=== PATIENT | male | born 1940 | race Caucasian/White ===

== ENCOUNTER → 2018-03-06 10:31 | Outpatient (CLI) | payer MEDICARE, SELFPAY ==
[2018-03-06 11:43] LABS: PSA,Total- Diagnostic 4.62 ng/mL (0.0-4.0)
== END ==
DX: N40.0 Benign prostatic hyperplasia without lower urinary tract symptoms (principal)
CPT/HCPCS: 36415; 84153

== ENCOUNTER → 2018-12-26 15:46 | Outpatient (CLI) | payer MEDICARE, SELFPAY ==
--- NOTE | 2018-12-26 16:45 | MRI_ITS ---
STUDY: MRA NECK WITH AND WITHOUT CONTRAST REASON FOR EXAM: Male, 78 years old. Dizziness after neck extension TECHNIQUE: 3-D fgin-ll-swlhix (TOF) imaging was performed in an 1.5 T MRI scanner. 14 IV Dotarem was administered for the contrast enhanced images. COMPARISON: None. FINDINGS: RIGHT CAROTID ARTERIES: Normal right common carotid artery (CCA). Normal right common carotid bulb. Normal origin of the right internal carotid (ICA) artery without a hemodynamically significant stenosis. Normal visualized cervical portion of the right internal carotid artery. Normal origin of the right external carotid artery (ECA). LEFT CAROTID ARTERIES: Normal left common carotid artery (CCA). Normal left common carotid bulb. Normal origin of the left internal carotid (ICA) artery without a hemodynamically significant stenosis. Normal visualized cervical portion of the left internal carotid artery. Normal origin of the left external carotid artery (ECA). VERTEBRAL ARTERIES: Left vertebral is normal in caliber throughout its course.. There is moderate diffuse narrowing of the distal right vertebral. MRI/MRA Neck WITH and W/O Contrast IMPRESSION: Atherosclerosis with most severe involvement of the right vertebral artery. No hemodynamically significant stenosis of the carotid arteries utilizing NASCET criteria Electronically Signed: Juliano Zhou MD at 16:57 EDT , Service support ,
[2018-12-27 07:21] LABS: CREATININE FINGERSTICK 0.95 mg/dL (0.70-1.30); EGFR FINGERSTICK > 60 mL/min (>60)
== END ==
DX: Z01.812 Encounter for preprocedural laboratory examination (principal); R42 Dizziness and giddiness
CPT/HCPCS: 70549; A9575

== ENCOUNTER → 2020-07-22 08:43 | Outpatient (CLI) | payer MEDICARE, SELFPAY ==
--- NOTE | 2020-07-22 08:49 | BD_ITS ---
STUDY: DUAL ENERGY X-RAY ABSORPTIOMETRY / DXA REASON FOR EXAM: Male, 80 years old. M810. Loss of height. TECHNIQUE: Bone Mineral Density (BMD) measurements of lumbar spine and bilateral hips were obtained. COMPARISON: None. FINDINGS: Lumbar Spine (L1-L4): g/cm2 (1.055) / T-score (-1.3) / Z-score (-0.6) Findings are suggestive of osteopenia with a low fracture risk. Increased thoracic kyphosis. Left Femur Total: g/cm2 (0.914) / T-score (-1.3) / Z-score (-0.2) Left Femoral Neck: g/cm2 (0.883) / T-score (-1.4) / Z-score (0.1) Right Femur Total: g/cm2 (0.951) / T-score (-1.0) / Z-score (0.0) Right Femoral Neck: g/cm2 (0.935) / T-score (-1.0) / Z-score (0.5) BD/Dexa Bone Density Study IMPRESSION: The patient is considered osteopenic as outlined below according to World [employer] Organization (WHO) criteria with a low fracture risk. Reference Information: The T-score is the number of standard deviations above or below the standard which is normal for young adults at their peak bone mineral density. The World Health Organization (WHO) interprets the T-scores as follows: Above -1 Normal bone density Between -1 and -2.5 Osteopenia Equal to / or below -2.5 Osteoporosis As a practical clinical guideline, osteopenia may be graded as follows: Mild -1 through -1.5 Moderate -1.6 through -2.0 Severe -2.1 through -2.4 The Z-score is the number of standard deviations above or below age-matched controls. A Z-score of less than -1.5 would be considered abnormal. References: 1. NIH Osteoporosis and Related Bone Diseases www osteo.org 2. International Society for Clinical Densitometry www iscd.org 3. National Osteoporosis Foundation www nof.org Electronically Signed: Amanuel Hanley MD at 15:38 EDT , Service support ,
== END ==
DX: M81.0 Age-related osteoporosis without current pathological fracture (principal)
CPT/HCPCS: 77080

== ENCOUNTER → 2021-02-24 12:34 | Outpatient (CLI) | payer MEDICARE, SELFPAY ==
--- NOTE | 2021-02-24 13:00 | MRI_ITS ---
EXAM: MR HEAD WITHOUT INTRAVENOUS CONTRAST CLINICAL INDICATION: Left-sided headache and weakness. TECHNIQUE: Multiplanar and multisequence MR images of the brain were obtained without intravenous contrast. This report was created using [employer] report generation technology. COMPARISON: None. FINDINGS: BRAIN AND EXTRA-AXIAL SPACES: No diffusion restriction throughout the brain parenchyma. No focal signal abnormalities of the brain parenchyma in all of the pulse sequences. No intra- or extra-axial hemorrhage. No evidence of acute infarct. No intracranial mass or mass effect. There is preservation of the crespo/white matter interface. Posterior fossa structures are unremarkable. Ventricles are appropriate for age. No hydrocephalus. Basal cisterns are patent. SELLA: Unremarkable. Normal sella turcica, pituitary gland, infundibular stalk, optic chiasm and hypothalamus. AUDITORY SYSTEM: Unremarkable. The internal auditory canals are patent. BONES/JOINTS: Unremarkable. No discrete lytic or blastic abnormalities. SINUSES: Unremarkable as visualized. Clear. MASTOID AIR CELLS: Unremarkable as visualized. Clear. ORBITS: Unremarkable as visualized. Both globes, extraocular muscles, optic nerves and retrobulbar fat appear unremarkable. VASCULATURE: Unremarkable as visualized. Normal flow voids in the major intracranial circulation. MRI/Brain without Contrast IMPRESSION: Normal MRI brain without contrast. Electronically Signed: Romario Barker MD at 14:05 EDT , Service support ,
== END ==
DX: R51.9 Headache, unspecified (principal); R53.1 Weakness
CPT/HCPCS: 70551

== ENCOUNTER → 2021-04-02 09:45 | Outpatient (CLI) | payer MEDICARE, SELFPAY ==
--- NOTE | 2021-04-02 09:48 | ECHOD_ITS ---
Reason For Study: Assess LV function, A. fib Procedure This was a 2D Doppler, Color Flow transthoracic echocardiogram. Exam performed in department. Left Ventricle Normal LV size. Left ventricular systolic function is normal. The estimated ejection fraction is 55 %. No regional wall motion abnormalities noted. Right Ventricle Normal RV size. Normal systolic function. Atria Normal left atrium. Normal right atrium. Mitral Valve Normal mitral valve. Tricuspid Valve Normal tricuspid valve. Mild tricuspid valve insufficiency. Aortic Valve Trisinus/trileaflet aortic valve. Pulmonic Valve Normal pulmonic valve. Great Vessels Normal aortic root. Pericardium/Pleural No pericardial effusion. MMode/2D Measurements & Calculations LVIDd: 4.1 cm IVSd: 0.92 cm Ao root diam: 3.0 cm LVIDs: 2.7 cm LVPWd: 0.92 cm RVDd: 3.4 cm FS: 34.9 % LAV(MOD-bp): 79.9 ml LVAd ap4: 22.3 cm2 LVAd ap2: 22.8 cm2 LAV(MOD-bp) Indexed: 43.9 ml/m2 LVLd ap4: 7.4 cm LVLd ap2: 7.0 cm LAV(MOD-sp2): 75.5 ml EDV(MOD-sp4): 57.0 ml EDV(MOD-sp2): 63.8 ml LAV(MOD-sp4): 65.2 ml EDV(sp4-el): 57.0 ml EDV(sp2-el): 63.4 ml LVAs ap4: 14.0 cm2 LVAs ap2: 14.4 cm2 LVLs ap4: 6.6 cm LVLs ap2: 6.6 cm ESV(MOD-sp4): 26.3 ml ESV(MOD-sp2): 28.1 ml ESV(sp4-el): 24.9 ml ESV(sp2-el): 26.6 ml EF(MOD-sp4): 53.8 % EF(MOD-sp2): 55.9 % EF(sp4-el): 56.3 % SV(MOD-sp4): 30.7 ml SV(MOD-sp2): 35.7 ml SV(sp4-el): 32.0 ml LA dimension(2D): 4.0 cm LA A4 area: 23.1 cm2 RA A4 area: 18.9 cm2 Doppler Measurements & Calculations MV E max odilia: 81.9 cm/sec Ao V2 max: 96.6 cm/sec LV V1 max: 76.1 cm/sec Ao max P.7 mmHg LV V1 max P.3 mmHg PA V2 max: 101.5 cm/sec TR max odilia: 211.8 cm/sec TR max P.1 mmHg ECHO/Echo Complete Interpretation Summary Normal LV size. Left ventricular systolic function is normal. The estimated ejection fraction is 55 %. Mild tricuspid valve insufficiency. Structurally normal valves. Ordering Physician: SLOAN MASSEY Referring Physician: SLOAN MASSEY Performed By: Jelly Haile RDCS
== END ==
DX: I48.20 Chronic atrial fibrillation, unspecified (principal)
CPT/HCPCS: 93306

== ENCOUNTER → 2022-07-07 | Outpatient (CLI) | payer MEDICARE, SELFPAY ==
--- NOTE | 2022-07-07 11:32 | RAD_ITS ---
STUDY: X-RAY - CERVICAL SPINE REASON FOR EXAM: Male, 81 years old. CERVICAL RADICULOPATHY TECHNIQUE: 6 view(s) of the cervical spine were obtained. COMPARISON: None FINDINGS: Normal anterior atlantoaxial articulation. Normal odontoid process. Normal cervical lordosis. Normal vertebral bodies and endplates. Mild disc space density at the cervical spine. Normal visualized intervertebral neuroforamina. The soft tissue structures are unremarkable. RAD/Cerv Spine 4 or 5 Views IMPRESSION: Mild degenerative changes, no acute findings Electronically Signed: Brian Elam MD at 11:51 EDT ,
== END | disposition home or self-care (01) ==
LOC: RAD 11:14
DX: M54.12 Radiculopathy, cervical region (principal)
CPT/HCPCS: 72050

== ENCOUNTER → 2024-02-09 | Outpatient (CLI) | payer MEDICARE, SELFPAY ==
--- NOTE | 2024-02-10 10:40 | STRESSREP ---
Stress Test Report Date: 02/10/2024 Procedure: Pharmacologic stress nuclear imaging study Indications: Chest pain Consent: Per the patient Procedure: The patient underwent pharmacologic (Regadenoson) evaluation with a peak heart rate of 78 beats per minute (56%predicted maximal heart rate) and a peak blood pressure of 120/72 mmHg. The baseline ECG demonstrated atrial fibrillation. EKG during lexiscan infusion revealed no significant ischemic changes. EKG post infusion revealed no significant ischemic changes [There were no cardiac dysrhythmias pretest, during pharmacologic infusion, or recovery]. [There was no complaint of chest discomfort during pharmacologic infusion or recovery]. The examination was discontinued secondary to completion of protocol. Impression: 1. Lexiscan stress test test is negative for Lexiscan infusion induced EKG changes of ischemia. 2. Lexiscan stress test test is negative for Lexiscan infusion induced chest pain. 3. Results of the nuclear portion of the test is as below Myocardial perfusion imaging study: Technique: The patient was injected with 11.2 millicuries of technetium 99m Cardiolite and subsequently rest SPECT Cardiolite nuclear imaging was obtained in the horizontal long, vertical long, and short axis views. The patient underwent pharmacologic [Regadenoson 0.4mg] evaluation. Please see above for details. The patient was injected with 34.6 millicuries of technetium 99m Cardiolite and subsequently stress SPECT Cardiolite nuclear imaging was obtained in the horizontal long, vertical long, and short axis views. A gated Cardiolite study at peak stress was obtained. Interpretation: Rest and stress SPECT Cardiolite nuclear imaging status post realignment, normalization, and attenuation correction demonstrate no significant ischemia or infarction. Gated images reveal no significant regional wall motion abnormalities. The reported LVEF is 65%. Impression: 1. There is no evidence of significant ischemia or infarction. 2. Estimated ejection fraction is 65%. This note was generated with [employer]ampal[employer] software. It may contain incorrect words, spelling, and punctuation that were not noted in checking the note before signing.
== END | disposition home or self-care (01) ==
DX: R07.9 Chest pain, unspecified (principal)
CPT/HCPCS: 78452; 93017; A9500; A4216; J2785